=== PATIENT | male | born 1960 | race Caucasian/White ===

== ENCOUNTER 2023-09-02 08:06 | Outpatient (CLI) | payer OTHER | END 2023-09-02 08:14 | disposition home or self-care (01) | LOC: TOM 08:06 | PROVIDERS: ATTEND Specialist | DX: K40.20 Bilateral inguinal hernia, without obstruction or gangrene, not specified as recurrent (principal) ==

== ENCOUNTER 2023-10-23 05:35 | Day surgery (SDC) | payer OTHER ==
[2023-10-08 08:21] LABS: URINE BACTERIA 6.3 uL (0.0-1933); URINE EPITHELIAL CELLS 1.9 uL (0.0-38.8); URINE WBC 2.7 uL (0.0-23.2)
[2023-10-08 08:23] LABS: URINE BILIRRUBIN NEGATIVE (NEGATIVE); URINE BLOOD NEGATIVE; URINE GLUCOSE NEGATIVE (NEGATIVE); URINE KETONE NEGATIVE (NEGATIVE); URINE LEUKOCYTE NEGATIVE; URINE NITRATE NEGATIVE; URINE PROTEIN NEGATIVE (NEGATIVE); URINE UROBILINOGEN 0.2 E.U./dl
[2023-10-08 08:24] LABS: URINE RBC 1.8 uL (0.0-20.8)
[2023-10-08 08:25] LABS: URINE APPEARANCE CLEAR; URINE COLOR YELLOW
[2023-10-08 08:26] LABS: HEMATOCRIT 40.1 % (39.0-48.0); HEMOGLOBIN 13.6 g/dL (13-16.00); MEAN CELL VOLUME 86.3 fL (80.0-100.00); MEAN CORPUSCULAR HEMOGLOBIN 29.3 pg (27.00-32.0); MEAN CORPUSCULAR HGB CONC 33.9 g/dl (32.0-36.0); PLATELET COUNT 186 K/uL (150-450); RED BLOOD COUNT 4.64 M/uL (4.00-6.00); RED CELL DISTRIBUTION WIDTH 15.2 % (11.5-14.5)
[2023-10-08 09:02] LABS: INR 1.03; PARTIAL THROMBOPLASTIN TIME 26.2 SECONDS (22.0-34.0); PROTHROMBIN TIME 11.2 SECONDS (9.0-11.5)
[2023-10-08 09:13] LABS: CALCIUM 8.9 mg/dL (8.5-10.1); CREATININE SERUM 0.95 mg/dL (0.70-1.30); GFR 80.33; POTASSIUM 4.18 mEq/L (3.5-5.1)
[~2023-10-23 05:35] MED LIST: ALTACE2.5 MG; CYMBALTA60 MG; KLONOPIN; LATUDA80 MG; LIPITOR80 MG; METFORMIN XR 750MG; NEURONTIN800 MG; PRILOSEC OTC20 MG; RESTORIL; TRULICITY3 MG/0.5 M; WELLBUTRIN SR150 MG; ZETIA10 MG
[2023-10-23] MEDS ORDERED: BUPIVACAINE HCL/MPF 0.5% 30ML VIAL ONE (06:40)
[2023-10-23] MEDS ORDERED: CEFAZOLIN SODIUM 1,000 MG VIAL ONE (06:41)
[2023-10-23] MEDS ORDERED: BUPIVACAINE HCL 30 ML VIAL IJ ONE (07:30)
[2023-10-23] MEDS ORDERED: CEFAZOLIN SODIUM 1,000 MG VIAL IV ONE (07:30)
[2023-10-23] MEDS ORDERED: KETOROLAC TROMETHAMINE 30 MG VIAL ONE (09:48)
[2023-10-23] MEDS ORDERED: KETO10TA2 PO (10:20)
[2023-10-23] MEDS ORDERED: TRAMADOL HCL50 MG PO (10:20)
[2023-10-23] MEDS ORDERED: MIRALAX17 GM PO (10:20)
[2023-10-23] MEDS ORDERED: TYLENOL ARTHRI650 MG PO (10:20)
== END 2023-10-23 13:45 | disposition home or self-care (01) ==
LOC: CIR.AMB 05:35
PROVIDERS: ATTEND Surgery
DX: K40.20 Bilateral inguinal hernia, without obstruction or gangrene, not specified as recurrent (principal); K42.0 Umbilical hernia with obstruction, without gangrene; E11.9 Type 2 diabetes mellitus without complications; F41.9 Anxiety disorder, unspecified; K21.9 Gastro-esophageal reflux disease without esophagitis; F32.A Depression, unspecified; H52.209 Unspecified astigmatism, unspecified eye
CPT/HCPCS: 49650; 49594; C1781